=== PATIENT | female | born 1965 | race Caucasian/White ===

== ENCOUNTER 2019-11-11 15:23 | Emergency (ER) | payer OTHER ==
[2019-11-11] MEDS ORDERED: Sodium Chloride 0.9% 2.5 ML Syringe FLUSH PRN (15:27)
[2019-11-11] MEDS ORDERED: Sodium Chloride 0.9% 10 ML Syringe FLUSH PRN (15:27)
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
--- NOTE | 2019-11-11 16:04 | CR ---
Chest: AP view of the chest was obtained. Comparison: Prior chest x-ray of 02/06/18. Mild increased density at left lung base. Lungs otherwise are clear. Heart size and mediastinum are normal. Bony structures are grossly intact. Impression: 1. Increased density within the left lung base. Differential includes small area of pneumonia as well as atelectasis. 2. No other acute abnormality is appreciated. Diagnostic code #3 Study was dictated in MDT
[2019-11-11 16:05] LABS: BLOOD UREA NITROGEN,BUN 10 mg/dL (7.0-18.0); CARBON DIOXIDE,CO2 29.8 mmol/L (21.0-32.0); CHLORIDE,CL 104 mmol/L (98-107); GLUCOSE RANDOM 95 mg/dL (74-106); POTASSIUM,K 3.2 mmol/L (3.5-5.1); SODIUM,NA 141 mmol/L (136-145)
[2019-11-11] MEDS ORDERED: Iopamidol 755 Mg/ML 100 ML Bottle IVPUSH STA (17:05)
--- NOTE | 2019-11-11 17:19 | CT ---
CT chest Technique: Multiple axial sections were obtained from above the lung apices inferiorly through the lung bases. Intravenous contrast was utilized. Study has been performed as a pulmonary angiogram protocol. Comparison: Previous chest x-ray performed earlier on the same day (3:41 PM). Findings: Pulmonary arteries are well-opacified. No filling defects are seen to indicate pulmonary embolism. Aorta shows no aneurysm. No dissection is seen. No pericardial effusions are seen. Lymph nodes are seen within the mediastinum believed to be within normal limits. Visualized upper abdominal structures shows nothing acute. Lung window settings were reviewed which shows a parenchymal density within the left lung base. Findings most likely due to an area of pneumonia. Lungs otherwise are clear. Bone window settings were reviewed. No acute osseous finding is appreciated. Impression: 1. Parenchymal density within the left lung base most likely representing an area of pneumonia. 2. No findings of pulmonary embolism. 3. No additional abnormality is appreciated. Diagnostic code #3 Study was dictated in MDT
[2019-11-11 20:49] VITALS: BP 125/67; PULSE 84
== END 2019-11-11 18:15 | disposition home or self-care (01) ==
LOC: MW.ED 15:23
DX: J18.9 Pneumonia, unspecified organism (principal); E03.9 Hypothyroidism, unspecified; Z79.899 Other long term (current) drug therapy; Z88.2 Allergy status to sulfonamides
CPT/HCPCS: 36415; 71045; 71275; 80053; 83880; 84484; 85025; 85379; 85610; 93005; 99285; Q9967; 99283

== ENCOUNTER 2023-08-19 09:40 | Day surgery (SDC) | payer OTHER ==
[~2023-08-19 09:40] MED LIST: Sodium Chloride 0.9% 10 ML Syringe FLUSH PRN; Sodium Chloride 0.9% 2.5 ML Syringe FLUSH PRN; Sodium Chloride 0.9% 20 ML SDV IV PRN
[2023-08-19] MEDS: Lactated Ringers 1,000 ML IV SCH (10:35)
[2023-08-19] MEDS ORDERED: propofoL 50 ML ONE (10:59)
[2023-08-19] MEDS ORDERED: Lidocaine 2% 5 ML SDV ONE (10:59)
[2023-08-19 12:49] VITALS: BP 111/58; PULSE 53
== END 2023-08-19 12:00 | disposition home or self-care (01) ==
LOC: MW.SDS 09:40
PROVIDERS: ATTEND Surgery
DX: Z12.11 Encounter for screening for malignant neoplasm of colon (principal); K63.5 Polyp of colon; K62.1 Rectal polyp; K57.30 Diverticulosis of large intestine without perforation or abscess without bleeding; E78.5 Hyperlipidemia, unspecified; E03.9 Hypothyroidism, unspecified; Z87.891 Personal history of nicotine dependence; Z79.890 Hormone replacement therapy; Z79.899 Other long term (current) drug therapy; Z88.2 Allergy status to sulfonamides
CPT/HCPCS: 45380; J2704; J7120; 00811; J3490